=== PATIENT | female | born 1985 | race Hispanic/Latino ===

== ENCOUNTER 2018-04-23 07:03 | Day surgery (SDC) | payer BC ==
[~2018-04-23 07:03] MED LIST: ANCEF/STERILE WATER 2 GM/20 ML IV NR
[2018-04-23] MEDS ORDERED: DIPRIVAN 10 MG/ML IV ONE (08:44)
[2018-04-23] MEDS ORDERED: XYLOCAINE MPF 2% ONE (08:44)
[2018-04-23] MEDS ORDERED: SUBLIMAZE ONE ×2 (08:44→10:04)
--- NOTE | 2018-04-23 08:50 | Anesthesia Consultation ---
Anesthesia Consult and Med Hx Date of service: 04/23/18 - Airway Anesthetic Teeth Evaluation: Good ROM Head & Neck: Adequate Mental/Hyoid Distance: Adequate Mallampati Class: Class II Intubation Access Assessment: Probably Good - Pulmonary Exam CTA: Yes - Cardiac Exam Cardiac Exam: RRR - Pre-Operative Health Status ASA Pre-Surgery Classification: ASA2 Proposed Anesthetic Plan: General - Pulmonary Hx Smoking: No Hx Respiratory Symptoms: No Hx Sleep Apnea: No (JONNA PRE SCREEN LOW RISK.) - Cardiovascular System Hx Hypertension: Yes (SINCE AT AGE 26 YRS; took metoprolol this morning) Hx Heart Attack/AMI: No - Central Nervous System Hx Seizures: No CVA: No Hx Psychiatric Problems: Yes (depression) - Gastrointestinal Hx Gastroesophageal Reflux Disease: No - Endocrine Hx Renal Disease: No Hx Liver Disease: No Hx Insulin Dependent Diabetes: No Hx Non-Insulin Dependent Diabetes: No Hx Hypothyroidism: Yes (synthroid) - Other Systems Hx Cancer: No - Additional Comments Anesthesia Medical History Comments: No hx anesthetic complications.
--- NOTE | 2018-04-23 08:50 | Anesthesia Day of Surgery ---
Anesthesia Day of Surgery - Day of Surgery Patient Examined: Yes Patient H&P Reviewed: Yes Patient is NPO: Yes Beta Blockers: Yes
[2018-04-23] MEDS ORDERED: LACTATED RINGERS 1,000 ML IV SCH (09:00)
[2018-04-23] MEDS ORDERED: LACTATED RINGERS 1,000 ML ONE (09:11)
[2018-04-23] MEDS ORDERED: ZOFRAN IV PRN (09:25)
[2018-04-23] MEDS ORDERED: VERSED ONE (09:29)
[2018-04-23] MEDS: DILAUDID IV PRN ×3 (10:42→11:19)
--- NOTE | 2018-04-23 10:49 | Short Stay Summary ---
Short Stay Documentation Date of service: 04/23/18 - History H&P: obtained from office - Allergies and Medications Current Medications: Allergies metronidazole [From Flagyl] Allergy (Verified 04/16/18 15:28) Itching hydrocodone Adverse Reaction (Verified 04/16/18 15:28) Nausea BANDAIDS Adverse Reaction (Uncoded 04/16/18 15:28) Rash Home Medications Medication Instructions Recorded Confirmed Last Taken Type Bupropion HCl [Wellbutrin XL] 300 mg PO QAM 04/16/18 04/16/18 Unknown History Ibuprofen [Motrin 800 MG tab] 800 mg PO PRN PRN 04/16/18 04/16/18 Unknown History Levothyroxine Sodium [Synthroid] 25 mcg PO DAILY 04/16/18 04/16/18 Unknown History Metoprolol [Lopressor TAB] 50 mg PO DAILY 04/16/18 04/16/18 Unknown History Active Medications Cefazolin Sodium (Ancef/Sterile Water 2 Gm/20 Ml) 2 gm IV PREOP NR Stop: 04/23/18 12:00 Hydromorphone HCl (Dilaudid) 0.5 mg IV Q10MIN PRN PRN Reason: Pain , Severe (7-10) Stop: 04/23/18 18:00 Last Admin: 04/23/18 10:42 Dose: 0.5 mg Lactated Ringer's (Lactated Ringers) 1,000 mls @ 75 mls/hr IV DIRECT KRISTEN Last Admin: 04/23/18 08:56 Dose: 75 mls/hr Ondansetron HCl (Zofran) 4 mg IV ONCE PRN PRN Reason: Nausea And Vomiting Stop: 04/23/18 18:00 - Brief post op/procedure progress note Date of procedure: 04/23/18 Pre-op diagnosis: left renal stone Post-op diagnosis: same Procedure: eswl Anesthesia: GETA Surgeon: DENZEL SEWELL Estimated blood loss: none Pathology: none Condition: stable - Hospital course Hospital course: dillaudid & post op info on chart - Disposition Condition at discharge: Stable Disposition: DC-01 TO HOME OR SELFCARE Short Stay Discharge Plan Follow up with: LAWRENCE DE GUZMAN [Other] - 7 Days
--- NOTE | 2018-04-23 11:28 | Operative Report ---
PREOPERATIVE DIAGNOSIS: Left renal stone. POSTOPERATIVE DIAGNOSIS: Left renal stone. SECONDARY DIAGNOSES: Bilateral renal stones. PROCEDURE: Left extracorporal shock wave lithotripsy, staged procedure. SURGEON: Joni Diane MD ANESTHESIA: General. ESTIMATED BLOOD LOSS: Minimal. FLUIDS: Crystalloid. COMPLICATIONS: No complications. INDICATIONS: This 32-year-old female seen in the office by Dr. Coleman, was found to have 7 mm left renal stone and bilateral 2-3 mm stones. Discussed options with the patient and her . They agreed to proceed with lithotripsy. DESCRIPTION OF PROCEDURE: The patient was taken to the operative suite, placed in supine position. After adequate general anesthesia, her stone was localized in 2 planes using fluoroscopy. Extracorporal shock wave lithotripsy was administered with a maximum kV of 8 and 3000 shocks. Adequate fragmentation could be appreciated. We had to use the entire of 3000 shocks on that one stone. She was extubated and taken to recovery room. She will go home on Dilaudid and strainer for the fragments. She is to follow up in the office. JOB# [id number] [facility]
[2018-04-23] MEDS ORDERED: PERCOCET 5/325 PO ONE (11:54)
[2018-04-23 11:57] VITALS: BP 139/91
--- NOTE | 2018-04-23 12:51 | Post Anesthesia Evaluation ---
- Post Anesthesia Evaluation Patient Participated: Yes Airway Patent: Yes Stable Respiratory Function: Yes Nausea/Vomiting: No Temp > 96.8F: Yes Pain Manageable: Yes Adequeate Hydration: Yes Anesthesia Complications: No
== END 2018-04-23 12:25 | disposition home or self-care (01) ==
LOC: OR 07:03
PROVIDERS: ATTEND Urology
DX: N20.0 Calculus of kidney (principal); I10 Essential (primary) hypertension; G47.30 Sleep apnea, unspecified; E03.9 Hypothyroidism, unspecified; F32.9 Major depressive disorder, single episode, unspecified; Z71.3 Dietary counseling and surveillance; Z79.899 Other long term (current) drug therapy; Z88.9 Allergy status to unspecified drugs, medicaments and biological substances; Z90.49 Acquired absence of other specified parts of digestive tract; Z86.2 Personal history of diseases of the blood and blood-forming organs and certain disorders involving the immune mechanism; Z98.890 Other specified postprocedural states
CPT/HCPCS: 50590; 81025; J0690; J1170; J2250; J2405; J2704; J3010; J7120